=== PATIENT | male | born 1930 | race Caucasian/White ===

== ENCOUNTER 2016-04-10 10:28 | Day surgery (SDC) | payer MEDICARE ==
[~2016-04-10] VITALS: Ht 193 cm; Wt 88.6 kg
[~2016-04-10 10:28] MED LIST: 0.9% Sodium Chloride 1,000 ML IV SCH; COU5 PO; HYDR1TAB PO; LOV80 SQ; MULT-64 PO; Sodium Chloride LOK Flush 10 mL Syringe IV PRN; fentaNYL-PF 50 mCg/mL 2 mL Inj IVPUSH PRN
[2016-04-10] MEDS ORDERED: ASPI-973 PO (10:59)
[2016-04-10 11:01] VITALS: BP 123/73; PULSE 66; RESP 17; O2SAT 99
[2016-04-10 11:51] VITALS: BP 103/58; PULSE 61; RESP 16; O2SAT 97
[2016-04-10 12:01] VITALS: BP 96/60; PULSE 57; RESP 14; O2SAT 98
[2016-04-10 12:06] VITALS: BP 107/66; PULSE 62; RESP 16; O2SAT 97
--- NOTE | 2016-04-10 12:13 | ENDO ---
[address] [address] ENDOSCOPY PROCEDURE PATIENT: AFUA MARSHALL : 1930 MR#: [id number] ADMIT: 04/10/2016 JOB ID: [id number] DATE: 04/10/2016 PROCEDURE: Colonoscopy. PREOPERATIVE DIAGNOSIS(ES): Constipation. POSTOPERATIVE DIAGNOSIS(ES): Poor prep, but no masses were seen. ANESTHESIA: Fentanyl 75 mcg, Versed 3 mg IV administered. DESCRIPTION OF PROCEDURE: After risks and benefits were explained to the patient, informed consent was obtained. After anesthesia was administered, a colonoscope was inserted per rectum to cecum and mucosa carefully examined. Prep of the patient was poor. After the procedure was done, the scope was withdrawn and procedure terminated. FINDINGS: Upon inspection of the anus, no masses, hemorrhoids, or ulcers were seen throughout the entire examination. There were multiple areas of liquid stool that was seen throughout the entire colon. No obvious masses were seen. Retroflexion was normal. IMPRESSIONS: Poor prep with no mass was seen. RECOMMENDATION: 1. Repeat colonoscopy in 1-3 years. 2. High-fiber diet. 3. With the next colonoscopy, patient should have an extended two-day prep.
== END 2016-04-10 23:59 | disposition home or self-care (01) ==
LOC: END 10:28
PROVIDERS: ATTEND Internal Medicine Gastroenterology
DX: K59.00 Constipation, unspecified (principal)
CPT/HCPCS: 45378; 99153; G0500; J2250; J3010; J7030